=== PATIENT | male | born 1980 | race Caucasian/White ===

== ENCOUNTER 2024-02-28 12:09 | Inpatient (IN) | payer OTHER ==
[2024-02-28] MEDS ORDERED: ACETAMINOPHEN INJECTION 100 ML ONE ×2 (13:57→13:58)
[2024-02-28] MEDS ORDERED: ONDANSETRON 4 MG/2 ML VIAL ONE (13:58)
[2024-02-28] MEDS: ONDANSETRON 4 MG/2 ML VIAL IVPUSH ONE (14:08)
[2024-02-28] MEDS: ACETAMINOPHEN 1000 MG/100 ML BAG IVPB ONE (14:08)
[2024-02-28 14:10] LABS: BASO % 0.3 % (0-2.0); HEMATOCRIT 47.4 % (35.4-49); MCH 28.4 pg (25.7-33.7); MCHC 33.8 g/dl (32.0-35.9); MEAN CELL VOLUME 84.1 fl (80-96); MONO % 5.4 % (3.8-10.2); NEUT % 75.3 % (42.8-82.8); PLATELET COUNT 138 10^3/uL (134-434); RBC 5.63 M/mm3 (4.00-5.60); RDW 13.5 % (11.9-15.9); WHITE BLOOD COUNT 4.5 K/mm3 (4.0-10.0)
[2024-02-28 14:34] LABS: POTASSIUM 4.7 mmol/L (3.5-5.1)
[2024-02-28 14:36] LABS: CALCIUM 8.7 mg/dL (8.5-10.1)
[2024-02-28 14:37] LABS: ALBUMIN 3.5 g/dl (3.4-5.0); BLOOD UREA NITROGEN 16.3 mg/dL (7-18)
[2024-02-28 14:40] LABS: CREATININE 1.1 mg/dL (0.55-1.3)
[2024-02-28 14:41] LABS: BILIRUBIN,TOTAL 0.5 mg/dL (0.2-1); TOT PROT 6.7 g/dl (6.4-8.2)
[2024-02-28] MEDS ORDERED: guaiFENesin/D-METHORPHAN HB 10 ML UNIT-DOSE CUPS ONE ×2 (15:32→22:01)
[2024-02-28] MEDS ORDERED: KETOROLAC TROMETHAMINE 30 MG/1 ML VIAL ONE (15:33)
[2024-02-28] MEDS: KETOROLAC TROMETHAMINE 30 MG/1 ML VIAL IVPUSH ONE (15:39)
[2024-02-28] MEDS: guaiFENesin/D-METHORPHAN HB 10 ML UNIT-DOSE CUPS PO ONE ×2 (15:39→22:09)
[2024-02-28] MEDS: AMOXICILLIN 500 MG CAPSULE (FP) PO ONE (21:58)
[2024-02-28] MEDS ORDERED: FAMOTIDINE 20 MG/50 ML IVPB 20 MG/50 ML MG IVPB ONE (22:01)
[2024-02-28] MEDS ORDERED: ALBUTEROL SO4 2.5/IPRATROPIUM 0.5 INH SOL 3 ML VIAL.NEB. NEB ONE (22:01)
[2024-02-28] MEDS ORDERED: AZITHROMYCIN 500 MG TABLET ONE (22:01)
[2024-02-28] MEDS ORDERED: CEFTRIAXONE 2 GM-D5W BAG 2 GM/50 ML BAG IVPB ONE (22:06)
[2024-02-28] MEDS: AZITHROMYCIN 250 MG TABLET PO ONE (22:09)
[2024-02-28] MEDS: CEFTRIAXONE 2 GM-D5W BAG 2 GM/50 ML BAG IVPB ONE (22:17)
[2024-02-28] MEDS: ALBUTEROL SO4 2.5/IPRATROPIUM 0.5 INH SOL 3 ML VIAL.NEB. NEB ONE (22:18)
[2024-02-28] MEDS: FAMOTIDINE 20 MG/50 ML IVPB 20 MG/50 ML MG IVPB ONE (22:18)
[2024-02-28] MEDS ORDERED: ALBUTEROL SO4 2.5/IPRATROPIUM 0.5 INH SOL 3 ML VIAL.NEB. NEB PRN (22:27)
[2024-02-28] MEDS ORDERED: methylPREDNISolone NA SUCC 40 MG/1 ML VIAL ONE (22:48)
[2024-02-28] MEDS: methylPREDNISolone NA SUCC 125 MG/2 ML VIAL IVPB SCH (23:00)
[2024-02-29] MEDS ORDERED: VANCOMYCIN 1 GM PREMIX (F) 1 GM/200 ML BAG ONE (01:15)
[2024-02-29] MEDS: methylPREDNISolone NA SUCC 125 MG/2 ML VIAL IVPUSH ONE (01:16)
[2024-02-29] MEDS: VANCOMYCIN 1,000 MG in DEXTROSE 5%-WATER - 250 ML IVPB ONE (01:16)
[2024-02-29] MEDS: methylPREDNISolone NA SUCC 40 MG/1 ML VIAL IVPUSH SCH ×2 (05:49→09:42)
[2024-02-29] MEDS: ALBUTEROL SO4 2.5/IPRATROPIUM 0.5 INH SOL 3 ML VIAL.NEB. NEB SCH (07:10)
[2024-02-29 08:55] LABS: BASO % 1.2 % (0-2.0); HEMATOCRIT 45.2 % (35.4-49); HEMOGLOBIN 15.2 GM/dL (11.7-16.9); LYMPH % 20.4 % (8-40); MCH 28.2 pg (25.7-33.7); MCHC 33.6 g/dl (32.0-35.9); MEAN CELL VOLUME 84.1 fl (80-96); MEAN PLT VOLUME 9.5 fl (7.5-11.1); MONO % 2.2 % (3.8-10.2); NEUT % 76.2 % (42.8-82.8); PLATELET COUNT 123 10^3/uL (134-434); RBC 5.38 M/mm3 (4.00-5.60); RDW 13.8 % (11.9-15.9); WHITE BLOOD COUNT 2.2 K/mm3 (4.0-10.0)
[2024-02-29 09:22] LABS: POTASSIUM 4.1 mmol/L (3.5-5.1)
[2024-02-29 09:24] LABS: CALCIUM 8.6 mg/dL (8.5-10.1)
[2024-02-29 09:25] LABS: BLOOD UREA NITROGEN 20.4 mg/dL (7-18); MAGNESIUM 1.9 mg/dL (1.8-2.4)
[2024-02-29 09:27] LABS: CREATININE 1.2 mg/dL (0.55-1.3)
[2024-02-29 09:28] LABS: PHOSPHOROUS 4.2 mg/dL (2.5-4.9)
[2024-02-29 09:29] LABS: BILIRUBIN,TOTAL 0.5 mg/dL (0.2-1); TOT PROT 6.1 g/dl (6.4-8.2)
[2024-02-29] MEDS: ENOXAPARIN NA (PORCINE) 40 MG/0.4 ML DISP.SYRIN SQ SCH (09:40)
[2024-02-29] MEDS: OSELTAMIVIR PHOSPHATE 75 MG CAPSULE PO SCH (09:40)
[2024-02-29] MEDS ORDERED: ENOXAPARIN NA (PORCINE) 40 MG/0.4 ML DISP.SYRIN SQ SCH (10:00)
[2024-02-29] MEDS ORDERED: CEFTRIAXONE 1 G/50 ML PREMIX 50 ML IVPB SCH (10:00)
[2024-02-29] MEDS ORDERED: AZITHROMYCIN IVPB 250 MG in DEXTROSE 5%-WATER - 250 ML IVPB SCH (10:00)
[2024-02-29 13:04] LABS: EPI CELLS 6 /uL (0-25.1); HYALINE CASTS 1 /uL (0-3.1); PH,URINE 5.5 (5.0-8.0); URINE APPEARANCE CLEAR; URINE BACTERIA 1 /uL (0-1359); URINE BILIRUBIN NEGATIVE (NEGATIVE); URINE COLOR YELLOW; URINE GLUCOSE (UA) TRACE (NEGATIVE); URINE KETONE NEGATIVE (NEGATIVE); URINE LEUK ESTERASE NEGATIVE (NEGATIVE); URINE NITRITE NEGATIVE (NEGATIVE); URINE PROTEIN 1+ (NEGATIVE); URINE RBC 6 /uL (0-23.9); URINE UROBILINOGEN 0.2 mg/dL (0.2-1.0); URINE WBC 16 /uL (0-25.8)
[2024-02-29] MEDS: ACETAMINOPHEN 325 MG TABLET (FP) PO PRN (15:15)
[2024-02-29 16:22] LABS: ARTERIAL BLD GAS O2 SATURATION 92.7 % (95-98); ARTERIAL BLOOD GAS BASE EXCESS -0.3 mmol/L (-2-2); ARTERIAL BLOOD GAS PO2 60.7 mmHg (80-100); ARTERIAL BLOOD GAS pH 7.455 (7.350-7.450)
[2024-02-29 16:26] LABS: ALLENS TEST POSITIVE
[2024-03-01] MEDS: guaiFENesin 200 MG/10 ML 10 ML UNIT-DOSE CUPS PO ONE (00:52)
[2024-03-01 09:40] LABS: BASO % 0.1 % (0-2.0); HEMATOCRIT 44.6 % (35.4-49); HEMOGLOBIN 14.9 GM/dL (11.7-16.9); LYMPH % 17.9 % (8-40); MCH 28.3 pg (25.7-33.7); MCHC 33.4 g/dl (32.0-35.9); MEAN CELL VOLUME 84.8 fl (80-96); MEAN PLT VOLUME 10.2 fl (7.5-11.1); MONO % 6.8 % (3.8-10.2); NEUT % 75.2 % (42.8-82.8); PLATELET COUNT 138 10^3/uL (134-434); RBC 5.26 M/mm3 (4.00-5.60); RDW 13.2 % (11.9-15.9); WHITE BLOOD COUNT 4.2 K/mm3 (4.0-10.0)
[2024-03-01 09:50] LABS: POTASSIUM 4.5 mmol/L (3.5-5.1)
[2024-03-01 10:14] LABS: CALCIUM 8.9 mg/dL (8.5-10.1)
[2024-03-01 10:15] LABS: BLOOD UREA NITROGEN 22.2 mg/dL (7-18)
[2024-03-01 10:18] LABS: BILIRUBIN,DIRECT 0.2 mg/dL (0.0-0.2)
[2024-03-01 10:19] LABS: TOT PROT 6.1 g/dl (6.4-8.2)
[2024-03-01 10:20] LABS: BILIRUBIN,TOTAL 0.6 mg/dL (0.2-1)
[2024-03-01 11:54] LABS: ARTERIAL BLD GAS O2 SATURATION 93.5 % (95-98); ARTERIAL BLOOD GAS BASE EXCESS -0.1 mmol/L (-2-2); ARTERIAL BLOOD GAS PO2 63.8 mmHg (80-100); ARTERIAL BLOOD GAS pH 7.453 (7.350-7.450)
[2024-03-01 11:55] LABS: ALLENS TEST POSITIVE
[2024-03-01] MEDS: AZITHROMYCIN 250 MG TABLET PO SCH (18:12)
[2024-03-02] MEDS: MELATONIN 5 MG TABLETS PO ONE (03:56)
[2024-03-02] MEDS: guaiFENesin 200 MG/10 ML 10 ML UNIT-DOSE CUPS PO PRN (03:56)
[2024-03-02 09:51] LABS: HEMATOCRIT 43.4 % (35.4-49); HEMOGLOBIN 14.8 GM/dL (11.7-16.9); MCH 28.6 pg (25.7-33.7); MCHC 34.2 g/dl (32.0-35.9); MEAN CELL VOLUME 83.7 fl (80-96); MEAN PLT VOLUME 9.2 fl (7.5-11.1); PLATELET COUNT 167 10^3/uL (134-434); RBC 5.18 M/mm3 (4.00-5.60); RDW 13.7 % (11.9-15.9)
[2024-03-02 10:20] LABS: POTASSIUM 4.6 mmol/L (3.5-5.1)
[2024-03-02 10:27] LABS: CALCIUM 8.7 mg/dL (8.5-10.1)
[2024-03-02 10:32] LABS: BILIRUBIN,TOTAL 0.8 mg/dL (0.2-1)
[2024-03-02] MEDS: BENZOCAINE/MENTH/CETYLPYRD CL 1 EACH LOZENGE MM PRN (16:36)
[2024-03-02] MEDS ORDERED: CODEINE SO4 30 MG TABLET PO PRN (17:23)
[2024-03-03 09:49] LABS: HEMATOCRIT 45.8 % (35.4-49); HEMOGLOBIN 15.5 GM/dL (11.7-16.9); MCH 28.3 pg (25.7-33.7); MCHC 33.9 g/dl (32.0-35.9); MEAN CELL VOLUME 83.5 fl (80-96); MEAN PLT VOLUME 9.2 fl (7.5-11.1); PLATELET COUNT 210 10^3/uL (134-434); RBC 5.49 M/mm3 (4.00-5.60); RDW 13.3 % (11.9-15.9); WHITE BLOOD COUNT 6.3 K/mm3 (4.0-10.0)
[2024-03-03 10:07] LABS: POTASSIUM 4.4 mmol/L (3.5-5.1)
[2024-03-03 10:34] LABS: BLOOD UREA NITROGEN 23.2 mg/dL (7-18)
[2024-03-03 10:39] LABS: CREATININE 0.9 mg/dL (0.55-1.3)
[2024-03-03] MEDS: MELATONIN 5 MG TABLETS PO PRN (21:49)
[2024-03-04 10:02] LABS: HEMATOCRIT 45.8 % (35.4-49); HEMOGLOBIN 15.5 GM/dL (11.7-16.9); MCH 28.5 pg (25.7-33.7); MCHC 33.9 g/dl (32.0-35.9); MEAN CELL VOLUME 84.2 fl (80-96); PLATELET COUNT 242 10^3/uL (134-434); RBC 5.44 M/mm3 (4.00-5.60); RDW 13.5 % (11.9-15.9); WHITE BLOOD COUNT 6.4 K/mm3 (4.0-10.0)
[2024-03-04] MEDS: methylPREDNISolone NA SUCC 40 MG/1 ML VIAL IVPUSH SCH (10:31)
[2024-03-04 11:55] LABS: POTASSIUM 3.9 mmol/L (3.5-5.1)
[2024-03-04 12:00] LABS: ALBUMIN 3.1 g/dl (3.4-5.0); BLOOD UREA NITROGEN 24.7 mg/dL (7-18); CALCIUM 8.7 mg/dL (8.5-10.1); MAGNESIUM 2.1 mg/dL (1.8-2.4)
[2024-03-04 12:03] LABS: CREATININE 0.9 mg/dL (0.55-1.3)
[2024-03-04 12:04] LABS: TOT PROT 6.1 g/dl (6.4-8.2)
[2024-03-05 09:15] LABS: HEMATOCRIT 44.7 % (35.4-49); HEMOGLOBIN 15.4 GM/dL (11.7-16.9); MCH 29.1 pg (25.7-33.7); MCHC 34.4 g/dl (32.0-35.9); MEAN CELL VOLUME 84.6 fl (80-96); MEAN PLT VOLUME 8.3 fl (7.5-11.1); PLATELET COUNT 339 10^3/uL (134-434); RBC 5.28 M/mm3 (4.00-5.60); RDW 13.4 % (11.9-15.9); WHITE BLOOD COUNT 6.1 K/mm3 (4.0-10.0)
[2024-03-05 09:38] LABS: POTASSIUM 4.1 mmol/L (3.5-5.1)
[2024-03-05 09:56] LABS: BLOOD UREA NITROGEN 21.3 mg/dL (7-18); CALCIUM 8.7 mg/dL (8.5-10.1); MAGNESIUM 2.2 mg/dL (1.8-2.4)
[2024-03-05 10:00] LABS: CREATININE 0.8 mg/dL (0.55-1.3); PHOSPHOROUS 3.1 mg/dL (2.5-4.9)
[2024-03-05 12:15] LABS: BILIRUBIN,DIRECT 0.3 mg/dL (0.0-0.2)
[2024-03-05 12:17] LABS: BILIRUBIN,TOTAL 1.2 mg/dL (0.2-1); TOT PROT 6.1 g/dl (6.4-8.2)
[2024-03-05 22:19] VITALS: RESP 18
[2024-03-06 07:13] LABS: POTASSIUM 4.5 mmol/L (3.5-5.1)
[2024-03-06 07:23] LABS: ALBUMIN 2.9 g/dl (3.4-5.0); CALCIUM 8.6 mg/dL (8.5-10.1)
[2024-03-06 07:27] LABS: BILIRUBIN,TOTAL 0.9 mg/dL (0.2-1); CREATININE 0.8 mg/dL (0.55-1.3); TOT PROT 5.6 g/dl (6.4-8.2)
[2024-03-06] MEDS: predniSONE 20 MG TABLET (UD) PO SCH (10:50)
[2024-03-06 11:01] VITALS: PULSE 66
[2024-03-06 14:48] VITALS: BP 100/66; TEMP 98.2
== END 2024-03-06 17:53 | disposition home or self-care (01) | DRG 137 ==
LOC: JERFT 12:09 → JERBED 22:47 → J6S 02-29 02:06
PROVIDERS: ADMIT Internal Medicine; ATTEND Internal Medicine
DX: A37.90 Whooping cough, unspecified species without pneumonia (principal); J96.01 Acute respiratory failure with hypoxia; J10.00 Influenza due to other identified influenza virus with unspecified type of pneumonia; R16.0 Hepatomegaly, not elsewhere classified; R30.0 Dysuria; R74.01 Elevation of levels of liver transaminase levels
CPT/HCPCS: 0241U-QW; 36415; 36600; 71045-TC-FY; 71046-TC-FY; 71275-TC; 74170-TC; 76705-TC; 80048; 80053; 80076; 80307; 81003; 82308; 82803; 83690; 83735; 84100; 85025; 85027; 85379; 86140; 86705; 86706; 86708; 86709; 87040; 87070; 87086; 87107; 87205; 87340; 87522; 87899; 93005; 93010; 93306-TC; 93308; 94010; 94640; 94761; 99285-25; J0131; Q9967